=== PATIENT | female | born 1975 | race Caucasian/White ===

== ENCOUNTER 2019-05-27 13:02 | Outpatient (CLI) | payer BC ==
--- NOTE | 2019-05-27 14:41 | RAD ---
PA AND LATERAL CHEST: HISTORY: Positive TB skin test. FINDINGS: Heart size appears upper limits of normal. Mediastinal structures are unremarkable. Lungs are clear of infiltrates. No evidence of active TB. No significant bony findings. IMPRESSION: No active intrathoracic disease. POS: OFF
== END 2019-05-27 13:03 | disposition home or self-care (01) ==
LOC: SCSRAD 13:02
PROVIDERS: ATTEND Family Medicine
DX: Z92.89 Personal history of other medical treatment (principal)
CPT/HCPCS: 71046

== ENCOUNTER 2019-07-19 20:30 | Outpatient (CLI) | payer BC | END 2019-07-19 20:31 | disposition home or self-care (01) | LOC: SLEEPLAB 20:30 | PROVIDERS: ATTEND Family Medicine | DX: G47.33 Obstructive sleep apnea (adult) (pediatric) (principal); R53.83 Other fatigue; K21.9 Gastro-esophageal reflux disease without esophagitis; D64.9 Anemia, unspecified; E66.9 Obesity, unspecified; Z68.33 Body mass index [BMI] 33.0-33.9, adult | CPT/HCPCS: 95810 ==

== ENCOUNTER 2022-04-13 07:52 | Outpatient (CLI) | payer BC | END 2022-04-13 07:53 | disposition home or self-care (01) | LOC: SCSRAD 07:52 | PROVIDERS: ATTEND Family Medicine | DX: R51.9 Headache, unspecified (principal); M43.12 Spondylolisthesis, cervical region | CPT/HCPCS: 72052; 72072 ==

== ENCOUNTER 2024-01-17 10:36 | Outpatient (CLI) | payer BC | END 2024-01-17 10:37 | disposition home or self-care (01) | LOC: RAD 10:36 | PROVIDERS: ATTEND Otolaryngology | DX: K21.9 Gastro-esophageal reflux disease without esophagitis (principal); R13.12 Dysphagia, oropharyngeal phase; K44.9 Diaphragmatic hernia without obstruction or gangrene | CPT/HCPCS: 74230 ==